=== PATIENT | male | born 1955 | race Caucasian/White ===

== ENCOUNTER 2017-01-06 20:39 | Emergency (ER) | payer MEDICAID, OTHER ==
[~2017-01-06] VITALS: Ht 167.6 cm; Wt 58.2 kg
[2017-01-06 20:39] VITALS: BP 149/89
[~2017-01-06 20:39] MED LIST: BUPR150T6 PO; GABA300C10 PO; HYDR-3240 PO; IBUP-1222 PO; OMEP-110 PO; RANI150T4 PO
[2017-01-06] MEDS ORDERED: LIDOCAINE 1%, 20ML ONE (20:52)
[2017-01-06] MEDS ORDERED: DIPH,PERTUSS(ACELL),TET VAC/PF 0.5 ML IM-VACC ONE ×2 (20:52→21:00)
== END 2017-01-06 21:34 | disposition home or self-care (01) ==
LOC: ED 21:28
DX: S61.216A Laceration without foreign body of right little finger without damage to nail, initial encounter (principal); Z23 Encounter for immunization; Z88.8 Allergy status to other drugs, medicaments and biological substances; W25.XXXA Contact with sharp glass, initial encounter; Y93.89 Activity, other specified; Y99.8 Other external cause status; Y92.69 Other specified industrial and construction area as the place of occurrence of the external cause
CPT/HCPCS: 12001; 90471; 90715

== ENCOUNTER 2017-01-18 14:20 | Emergency (ER) | payer MEDICAID, OTHER ==
[~2017-01-18] VITALS: Ht 167.6 cm; Wt 62.0 kg
[2017-01-18] MEDS ORDERED: LORazepam 1MG TABLET ONE (14:52)
[2017-01-18] MEDS ORDERED: LORazepam 1MG TABLET PO ONE (15:00)
[2017-01-18 16:29] VITALS: BP 165/90
== END 2017-01-18 16:32 | disposition home or self-care (01) ==
LOC: ED 15:49
DX: N30.00 Acute cystitis without hematuria (principal); F41.1 Generalized anxiety disorder; R06.4 Hyperventilation
CPT/HCPCS: 81003; 99283

== ENCOUNTER 2017-04-17 19:50 | Emergency (ER) | payer MEDICAID ==
[~2017-04-17] VITALS: Ht 170.2 cm; Wt 55.9 kg
[2017-04-17] MEDS ORDERED: ALBUTEROL/IPRATROPIUM 2.5MG/0.5MG, 3 ML ONE (20:22)
[2017-04-17] MEDS ORDERED: FAMOTIDINE 20 MG/2 ML ONE (20:24)
[2017-04-17] MEDS ORDERED: ONDANSETRON 2MG/ML, 2ML ONE (20:24)
[2017-04-17] MEDS ORDERED: SODIUM CHLORIDE FLUSH 10ML SYR IVF ONE (20:30)
[2017-04-17] MEDS ORDERED: SODIUM CHLORIDE 0.9% 1,000ML IVBOLUS ONE (20:30)
[2017-04-17] MEDS ORDERED: CITA20TA5 PO (20:30)
[2017-04-17] MEDS ORDERED: ONDANSETRON 2MG/ML, 2ML IVPush ONE (20:30)
[2017-04-17] MEDS ORDERED: FAMOTIDINE 20 MG/2 ML IVP ONE (20:30)
[2017-04-17] MEDS: ALBUTEROL/IPRATROPIUM 2.5MG/0.5MG, 3 ML NPPB SCH ×2 (20:53→20:54)
[2017-04-17 20:55] LABS: HEMOGLOBIN 12.9 g/dL (13.7-18.0); WHITE BLOOD COUNT 3.5 x10^3/uL (3.4-10)
[2017-04-17 21:02] LABS: ASPARTATE AMINO TRANSFERASE 75 U/L (15-37); BLOOD UREA NITROGEN 21 mg/dL (7-18)
[2017-04-17] MEDS ORDERED: PINK LADY ENEMA 1,000 ML PR STA (21:15)
[2017-04-17 22:01] VITALS: BP 139/80
== END 2017-04-17 22:29 | disposition home or self-care (01) ==
LOC: ED 20:59
DX: K56.60 Unspecified intestinal obstruction (principal); J44.1 Chronic obstructive pulmonary disease with (acute) exacerbation; K59.00 Constipation, unspecified; B18.1 Chronic viral hepatitis B without delta-agent; D64.9 Anemia, unspecified; Z98.890 Other specified postprocedural states
CPT/HCPCS: 36415; 74022; 80053; 81003; 85025; 93005; 94640; 96361; 96374; 96375; 99285; J2405; J7030; J7620; S0028

== ENCOUNTER 2017-12-20 17:44 | Emergency (ER) | payer MEDICAID ==
[~2017-12-20] VITALS: Ht 170.2 cm; Wt 57.5 kg
[~2017-12-20 17:44] MED LIST changes: +CITA20TA5 PO
[2017-12-20] MEDS ORDERED: SODIUM CHLORIDE FLUSH 10ML SYR IVF ONE (18:30)
[2017-12-20] MEDS ORDERED: ONDANSETRON ODT 4 MG PO ONE (18:30)
[2017-12-20] MEDS ORDERED: ONDANSETRON ODT 4 MG ONE (18:30)
[2017-12-20] MEDS ORDERED: SODIUM CHLORIDE 0.9% 1,000ML IVBOLUS ONE (18:30)
[2017-12-20 18:40] LABS: MEAN CORPUSCULAR HEMOGLOBIN 34.5 pg (27.5-34.5); MEAN CORPUSCULAR HGB CONC 34.9 g/dL (33.2-36.2); MEAN CORPUSCULAR VOLUME 98.9 fL (81-97); MEAN PLATELET VOLUME 7.5 fL (7.4-10.4); PLATELET COUNT 134 x10^3/uL (130-400); RED BLOOD COUNT 3.96 x10^6/uL (4.38-5.82); RED CELL DISTRIBUTION WIDTH 14.5 % (9.4-14.8)
[2017-12-20 18:43] LABS: ALANINE AMINOTRANSFERASE 36 U/L (12-78); ALBUMIN 3.5 g/dL (3.4-5.0); ANION GAP 7 mmol/L (5-15); CALCIUM 8.8 mg/dL (8.5-10.1); CHLORIDE 106 mmol/L (98-107); CREATININE 0.93 mg/dL (0.7-1.3)
[2017-12-20 18:47] LABS: ALKALINE PHOSPHATASE 59 U/L (45-117); BILIRUBIN,TOTAL 0.6 mg/dL (0.2-1.0); TROPONIN I < 0.015 ng/mL (0.000-0.045)
[2017-12-20 19:16] VITALS: BP 118/81
[2017-12-20 19:16] LABS: BASOPHILS # (AUTO) 0.01 x10^3/uL (0-0.1); BASOPHILS % (AUTO) 0 % (0-1); EOSINOPHILS # (AUTO) 0.04 x10^3/uL (0-0.4); EOSINOPHILS % (AUTO) 1 % (1-7); LYMPHOCYTES # (AUTO) 1.16 x10^3/uL (1-3.4); LYMPHOCYTES % (AUTO) 36 % (22-44); MD SCAN; MONOCYTES # (AUTO) 0.42 x10^3/uL (0.2-0.8); MONOCYTES % (AUTO) 13 % (2-9); NEUTROPHILS # (AUTO) 1.65 x10^3/uL (1.8-6.8); NEUTROPHILS % (AUTO) 50 % (42-75)
== END 2017-12-20 19:41 | disposition home or self-care (01) ==
LOC: ED 19:24
DX: R55 Syncope and collapse (principal); E86.0 Dehydration; J44.9 Chronic obstructive pulmonary disease, unspecified; M19.90 Unspecified osteoarthritis, unspecified site; F32.9 Major depressive disorder, single episode, unspecified; F17.200 Nicotine dependence, unspecified, uncomplicated
CPT/HCPCS: 36415; 71045; 80053; 83690; 84484; 85025; 93005; 96360; 99285; J7030; Q0162

== ENCOUNTER 2019-11-28 07:30 | Inpatient (IN) | payer MEDICARE, MEDICAID ==
[~2019-11-28] VITALS: Ht 170.2 cm; Wt 67.0 kg
[~2019-11-28 07:30] MED LIST changes: -CITA20TA5 PO; +CITA20TA6 PO
[2019-11-28] MEDS ORDERED: CHLORHEXIDINE 15 ML UDC MM STA (10:48)
[2019-11-28] MEDS ORDERED: CHLORHEXIDINE 15 ML UDC ONE (10:52)
[2019-11-28] MEDS ORDERED: LACTATED RINGERS 1,000 ML IV STA (10:55)
[2019-11-28] MEDS ORDERED: LACTATED RINGERS 1,000 ML IV ONE (11:30)
[2019-11-28] MEDS ORDERED: BUPIVACAINE/PF-EPI 0.25% 1:200K ONE (12:04)
[2019-11-28] MEDS ORDERED: INDIGO CARMINE 0.8%, 5ML ONE (12:04)
[2019-11-28] MEDS ORDERED: FENTANYL PF 250 MCG/5ML ONE ×2 (13:35→14:33)
[2019-11-28] MEDS ORDERED: CEFAZOLIN 1,000 MG ONE (16:40)
[2019-11-28] MEDS ORDERED: DEXAMETHASONE 4 MG/ML, 1ML ONE (16:40)
[2019-11-28] MEDS ORDERED: ROCURONIUM 10MG/ML,5ML ONE (16:40)
[2019-11-28] MEDS ORDERED: NEOSTIGMINE 1 MG/ML, 10ML ONE (16:40)
[2019-11-28] MEDS ORDERED: ONDANSETRON 2MG/ML, 2ML ONE (16:40)
[2019-11-28] MEDS ORDERED: PROPOFOL 10 MG/ML, 20ML ONE (16:40)
[2019-11-28] MEDS ORDERED: GLYCOPYRROLATE 0.2MG/1ML, 5ML ONE (16:40)
[2019-11-28] MEDS ORDERED: SUCCINYLCHOLINE 20 MG/ML, 10ML ONE (16:40)
[2019-11-28] MEDS ORDERED: SUGAMMADEX 200 MG/2 ML IVPush ONE (16:40)
[2019-11-28] MEDS ORDERED: PROMETHAZINE 25 MG/ML, 1ML IV PRN (17:30)
[2019-11-28] MEDS ORDERED: LABETALOL 5MG/ML, 20ML IV PRN (17:30)
[2019-11-28] MEDS ORDERED: hydrALAzine 20 MG/ML, 1ML IV PRN (17:30)
[2019-11-28] MEDS ORDERED: ONDANSETRON 2MG/ML, 2ML IV PRN ×2 (17:30→19:00)
[2019-11-28] MEDS ORDERED: ACETAMINOPHEN 325 MG TABLET PO PRN (17:30)
[2019-11-28] MEDS ORDERED: FENTANYL PF 100 MCG/2ML ONE (17:30)
[2019-11-28] MEDS ORDERED: OXYcodone 5 MG/5 ML ORAL.SOL UDC ONE ×2 (17:31→18:26)
[2019-11-28] MEDS: FENTANYL PF 100 MCG/2ML IV PRN ×4 (17:34→18:09)
[2019-11-28] MEDS: OXYcodone 5 MG/5 ML ORAL.SOL UDC PO PRN ×2 (17:35→17:58)
[2019-11-28] MEDS ORDERED: HYDROmorphone 1 MG/ML, 1ML INJ ONE (18:05)
[2019-11-28] MEDS: HYDROmorphone 2 MG/ML, 1ML IVPush PRN ×2 (18:09→18:21)
[2019-11-28] MEDS ORDERED: OPIUM/BELLADONNA SUPP.RECT 16.2-30 MG PR PRN (19:00)
[2019-11-28] MEDS ORDERED: TEMAZEPAM 15 MG CAPSULE PO PRN (19:00)
[2019-11-28] MEDS ORDERED: morphine SULFATE 10 MG/ML, 1ML IV PRN (19:00)
[2019-11-28] MEDS: CEFAZOLIN PMX 1GM/50ML 50 ML IVPB SCH (21:16)
[2019-11-28] MEDS: HYDROcodone/APAP 5/325 TABLET PO PRN (22:35)
[2019-11-29 01:02] VITALS: BP 120/73
[2019-11-29 03:34] VITALS: BP 99/59
[2019-11-29] MEDS: LACTATED RINGERS 1,000 ML IV SCH ×2 (04:08→18:15)
[2019-11-29] MEDS: HYDROcodone/APAP 5/325 TABLET PO PRN ×4 (04:16→18:18)
[2019-11-29] MEDS: CEFAZOLIN PMX 1GM/50ML 50 ML IVPB SCH (04:57)
[2019-11-29 05:53] LABS: ANION GAP 5 mmol/L (5-15); CALCIUM 8.1 mg/dL (8.5-10.1); CHLORIDE 105 mmol/L (98-107)
[2019-11-29 05:55] LABS: CREATININE 0.99 mg/dL (0.7-1.3)
[2019-11-29 07:05] VITALS: BP 117/69
[2019-11-29] MEDS: ENOXAPARIN 40 MG/0.4 ML SQ SCH (10:18)
[2019-11-29 14:09] VITALS: BP 118/74
[2019-11-29 20:50] VITALS: BP 122/72
[2019-11-30 02:15] VITALS: BP 116/67
[2019-11-30] MEDS: HYDROcodone/APAP 5/325 TABLET PO PRN ×3 (02:25→13:47)
[2019-11-30] MEDS: CEFAZOLIN PMX 1GM/50ML 50 ML IVPB SCH (05:00)
[2019-11-30 05:35] LABS: CREATININE 0.92 mg/dL (0.7-1.3)
[2019-11-30 05:42] LABS: ANION GAP 5 mmol/L (5-15); CHLORIDE 106 mmol/L (98-107)
[2019-11-30 05:50] LABS: CALCIUM 8.2 mg/dL (8.5-10.1)
[2019-11-30 08:10] VITALS: BP 143/77
[2019-11-30] MEDS: ENOXAPARIN 40 MG/0.4 ML SQ SCH (08:34)
[2019-11-30] MEDS: LACTATED RINGERS 1,000 ML IV SCH (08:34)
[2019-11-30] MEDS ORDERED: DOCUSATE 100 MG CAPSULE ONE (08:46)
[2019-11-30] MEDS ORDERED: DOCUSATE 100 MG CAPSULE PO ONE (09:00)
[2019-11-30] MEDS ORDERED: ALBUTEROL SULFATE 2.5 MG/3 ML ONE (09:49)
[2019-11-30] MEDS ORDERED: ALBUTEROL SULFATE 2.5 MG/3 ML NPPB PRN (10:00)
[2019-11-30] MEDS ORDERED: HYDR-3240 PO (11:03)
[2019-11-30 15:05] VITALS: BP 143/77
== END 2019-11-30 17:00 | disposition home or self-care (01) | DRG 657 ==
LOC: ORIP 10:18 → EDSTATUS 13:00 → 4NE 18:37
PROVIDERS: ADMIT Urology; ATTEND Urology
PROC: 07BD4ZX Excision of Aortic Lymphatic, Percutaneous Endoscopic Approach, Diagnostic (ICD-10-PCS; 2019-11-28)
PROC: 8E0W4CZ Robotic Assisted Procedure of Trunk Region, Percutaneous Endoscopic Approach (ICD-10-PCS; 2019-11-28)
PROC: 0TJB8ZZ Inspection of Bladder, Via Natural or Artificial Opening Endoscopic (ICD-10-PCS; 2019-11-28)
PROC: 0TT04ZZ Resection of Right Kidney, Percutaneous Endoscopic Approach (ICD-10-PCS; principal; 2019-11-28 13:00)
DX: C66.1 Malignant neoplasm of right ureter (principal); C65.1 Malignant neoplasm of right renal pelvis; F41.9 Anxiety disorder, unspecified; F17.200 Nicotine dependence, unspecified, uncomplicated; Z79.899 Other long term (current) drug therapy
CPT/HCPCS: 36415; 80048; 85014; 85018; 86850; 86900; 88305; 88307; 94640; G0378; J0690; J1100; J1170; J1650; J2405; J2704; J2710; J3010; J7613; C1760; J0330; J7120

== ENCOUNTER 2019-12-06 08:00 | Outpatient (CLI) | payer MEDICARE, MEDICAID | END 2019-12-06 23:59 | disposition home or self-care (01) | LOC: RAD 08:00 | PROVIDERS: ATTEND Urology | DX: C66.9 Malignant neoplasm of unspecified ureter (principal) | CPT/HCPCS: 51600; 74430; Q9958 ==

== ENCOUNTER 2020-01-25 12:34 | Emergency (ER) | payer MEDICAID, MEDICARE ==
[~2020-01-25] VITALS: Ht 170.2 cm; Wt 59.1 kg
--- NOTE | 2020-01-25 13:07 | NUR ---
RECEIVED REPORT FROM MARC HENDERSON. PT RESTING ON KEVONAIDAN. ALBERTO. VSS. STATES 1G TYLENOL FROM EMS IS HELPING W/ PAIN.
[2020-01-25 14:03] VITALS: BP 128/78
--- NOTE | 2020-01-25 14:04 | NUR ---
PT RESTING ON GURRUDDY. NADN. VSS. STATES PAIN INCREASING. ERP DR. ESPINOSA NOTIFIED.
[2020-01-25] MEDS ORDERED: HYDROcodone/APAP 5/325 TABLET ONE (14:13)
[2020-01-25] MEDS ORDERED: HYDROcodone/APAP 5/325 TABLET PO ONE (14:30)
== END 2020-01-25 14:51 | disposition home or self-care (01) ==
LOC: ED 13:13
DX: S52.591A Other fractures of lower end of right radius, initial encounter for closed fracture (principal); J44.9 Chronic obstructive pulmonary disease, unspecified; W18.30XA Fall on same level, unspecified, initial encounter; Y93.89 Activity, other specified; Y92.009 Unspecified place in unspecified non-institutional (private) residence as the place of occurrence of the external cause; Y99.8 Other external cause status
CPT/HCPCS: 29125; 99283

== ENCOUNTER 2020-11-14 12:25 | Outpatient (CLI) | payer MEDICAID ==
[~2020-11-14 12:25] MED LIST changes: +BUPR150T22 PO; -BUPR150T6 PO; +HYDR-1067 PO; -HYDR-3240 PO
[2020-11-14] MEDS ORDERED: ENTE0.5T PO (13:05)
[2020-11-14] MEDS ORDERED: NITR100C6 PO (13:05)
[2020-11-14] MEDS ORDERED: OMEP-110 PO (13:05)
[2020-11-14] MEDS ORDERED: GABA300C PO (13:05)
[2020-11-14] MEDS ORDERED: ALBU8.5H8 INH (13:19)
[2020-11-14 13:46] LABS: BASOPHILS % (AUTO) 1 % (0-1); EOSINOPHILS % (AUTO) 2 % (1-7); LYMPHOCYTES % (AUTO) 26 % (22-44); MEAN CORPUSCULAR HEMOGLOBIN 32.5 pg (27.5-34.5); MEAN CORPUSCULAR HGB CONC 33.4 g/dL (33.2-36.2); MEAN PLATELET VOLUME 7.8 fL (7.4-10.4); MONOCYTES % (AUTO) 15 % (2-9); NEUTROPHILS % (AUTO) 57 % (42-75); PLATELET COUNT 108 x10^3/uL (130-400); RED BLOOD COUNT 4.27 x10^6/uL (4.38-5.82); RED CELL DISTRIBUTION WIDTH 14.8 % (9.4-14.8)
[2020-11-14 13:48] LABS: MICROSCOPIC AUTO
[2020-11-14 13:48] LABS: MD NO
[2020-11-14 13:59] LABS: ANION GAP 4 mmol/L (5-15); CALCIUM 9.4 mg/dL (8.5-10.1); CHLORIDE 105 mmol/L (98-107); CREATININE 1.17 mg/dL (0.7-1.3)
[2020-11-14 14:03] LABS: INTERNATIONAL NORMALIZED RATIO 0.96 (0.93-1.1); PROTHROMBIN TIME 10.3 Seconds (9.6-11.5)
== END 2020-11-14 23:59 | disposition home or self-care (01) ==
LOC: STAR 12:25
PROVIDERS: ATTEND Urology
DX: Z01.812 Encounter for preprocedural laboratory examination (principal); Z20.822 Contact with and (suspected) exposure to COVID-19; C64.9 Malignant neoplasm of unspecified kidney, except renal pelvis
CPT/HCPCS: 36415; 80048; 81001; 85025; 85610; 87086; 93005; U0003

== ENCOUNTER 2020-11-20 11:23 | Day surgery (SDC) | payer MEDICARE, MEDICAID ==
[~2020-11-20] VITALS: Ht 170.2 cm; Wt 53.3 kg
[~2020-11-20 11:23] MED LIST changes: +ALBU8.5H8 INH; +ENTE0.5T PO; +GABA300C PO; -HYDR-1067 PO; +HYDR-2214 PO; +NITR100C6 PO
[2020-11-20 12:01] VITALS: BP 109/76
[2020-11-20] MEDS ORDERED: ANTIBIOTIC PO (12:08)
[2020-11-20] MEDS ORDERED: CHLORHEXIDINE 15 ML UDC ONE (12:11)
[2020-11-20] MEDS ORDERED: CHLORHEXIDINE 15 ML UDC PO ONE (12:30)
[2020-11-20] MEDS ORDERED: LACTATED RINGERS 1,000 ML IV SCH (12:30)
[2020-11-20] MEDS ORDERED: MIDAZOLAM 1 MG/ML, 2ML ONE (13:58)
[2020-11-20] MEDS ORDERED: OPIUM/BELLADONNA SUPP.RECT 16.2-60 MG ONE (14:13)
[2020-11-20] MEDS ORDERED: CEFAZOLIN 1,000 MG ONE (14:22)
[2020-11-20] MEDS ORDERED: NEOSTIGMINE 1 MG/ML, 10ML ONE (14:22)
[2020-11-20] MEDS ORDERED: PROPOFOL 10 MG/ML, 20ML ONE (14:22)
[2020-11-20] MEDS ORDERED: GLYCOPYRROLATE 0.2MG/1ML, 5ML ONE (14:22)
[2020-11-20] MEDS ORDERED: ROCURONIUM 10 MG/ML,10ML ONE (14:22)
[2020-11-20] MEDS ORDERED: FENTANYL PF 100 MCG/2ML ONE ×2 (14:26→15:34)
[2020-11-20] MEDS ORDERED: GEMCITABINE HCL 1,000 MG in SODIUM CHLORIDE 0.9% 23.7 ML IS ONE (14:30)
[2020-11-20] MEDS ORDERED: OXYcodone 5 MG/5 ML ORAL.SOL UDC PO PRN (15:00)
[2020-11-20] MEDS ORDERED: HYDROmorphone 1 MG/ML, 1ML INJ IVPush PRN (15:00)
[2020-11-20] MEDS ORDERED: MEPERIDINE/PF 25MG/0.5ML IVPush PRN (15:00)
[2020-11-20] MEDS ORDERED: PROMETHAZINE 25 MG/ML, 1ML IVPush PRN (15:00)
[2020-11-20] MEDS ORDERED: HYDROcodone/APAP 7.5-325MG/15ML UDC PO PRN (15:00)
[2020-11-20] MEDS ORDERED: ONDANSETRON 2MG/ML, 2ML IVPush PRN (15:00)
[2020-11-20] MEDS ORDERED: OPIUM/BELLADONNA SUPP.RECT 16.2-30 MG ONE (15:34)
[2020-11-20] MEDS: FENTANYL PF 100 MCG/2ML IV PRN ×2 (15:38→15:46)
[2020-11-20] MEDS ORDERED: OXYcodone 5 MG/5 ML ORAL.SOL UDC ONE (15:39)
[2020-11-20] MEDS ORDERED: OPIUM/BELLADONNA SUPP.RECT 16.2-30 MG PR ONE (16:00)
== END 2020-11-20 18:15 | disposition home or self-care (01) ==
LOC: OUT 11:23
PROVIDERS: ATTEND Urology
DX: D49.4 Neoplasm of unspecified behavior of bladder (principal); C67.2 Malignant neoplasm of lateral wall of bladder; N40.1 Benign prostatic hyperplasia with lower urinary tract symptoms; R39.11 Hesitancy of micturition; F17.210 Nicotine dependence, cigarettes, uncomplicated; Z53.29 Procedure and treatment not carried out because of patient's decision for other reasons; Z79.891 Long term (current) use of opiate analgesic; Z79.899 Other long term (current) drug therapy; Z90.6 Acquired absence of other parts of urinary tract
CPT/HCPCS: 51720; 52240; 88307; J0690; J2704; J2710; J3010; J7120; J2250